=== PATIENT | male | born 2000 | race African-American/Black ===

== ENCOUNTER → 2021-11-20 | Outpatient (REF) | payer OTHER ==
[2021-11-20 10:44] LABS: SEMEN APPEARANCE OPAQUE (OPAQUE); SEMEN VISCOSITY LIQUID (LIQUID); SEMEN VOLUME 3.2 ml (2.0-5.0); SEMEN pH 8.5 (7.0-8.0)
[2021-11-20 10:45] LABS: WBC CONCENTRATION <=1 M/ml (<=1 M/ml)
[2021-11-20 10:47] LABS: SPERM CONCENTRATION 87.4 M/ml (>=15.0)
== END ==
LOC: M LAB REF 10:39
PROVIDERS: ATTEND Advanced Practice Midwife
DX: N46.8 Other male infertility (principal)